=== PATIENT | female | born 1955 | race Caucasian/White ===

== ENCOUNTER 2021-06-01 14:47 | Inpatient (IN) ==
[2021-06-01] MEDS ORDERED: SODIUM CHLORIDE 0.9% 1000ML 1,000 ML IV STA (15:13)
--- NOTE | 2021-06-01 15:21 | Emergency Department Note ---
Impression & Plan Weakness, Orthostatic hypotension, Hypokalemia, Thrombocytopenia ED Provider Note Provider: Michel Alaniz MD DATE OF SERVICE: 06/01/2021 CHIEF COMPLAINT: Weakness, myalgias, diarrhea today HISTORY OF PRESENT ILLNESS: Patient is a 65-year-old female history of endocarditis in 2014 presenting here referred from the PCPs office today after evaluation of approximately 2 weeks of illness. Patient states this began approximate 2 weeks ago with little bit of slight headache and jaw pain. Was a significant amount of associated weakness with this and states she just felt like she can get out of bed for several days. Patient evidently states that she did have a syncopal episode with this and fell to the ground in the bathroom. Was seen in the ER after this event on 21 May. Had a negative outpatient Covid test just before that. States she is unsure if she truly lost consciousness wit h her previous fall but has not had any recurrence of that since then. ER evaluation was only noted a bit of kidney dysfunction which she states she has chronic kidney disease and she was referred to follow-up in the outpatient setting. States she did that and did have significant improvement and thus followed up again today. States has not been eating or drinking as much as normal having significant leg cramps the bilateral calves. Still with some intermittent head and jaw discomfort at times. States she feels a little bit short of breath but denies chest pain beyond some bruising of the right lower lives where she fell. No sick contacts reported. Reports a little bit of loose diarrhea today. Has not been on recent antibiotics in the outpatient setting. Patient unsure if she has had any recent actual tick bites but [place] in area where there are many and states she had a little red spot on her leg/bump a few days ago that is improved. States she does have some bruising on the right lower chest wall from this previous fall with a little bit of tenderness there. Denies significant abdominal pain. Simeon in the office today was noted to be somewhat hypotensive with a systolic in the 90s and was sent here for further evaluation. Patient denies significant sore throat or neck pain at this time. REVIEW OF SYSTEMS: A total of 10 review of systems was obtained and negative except as stated above in the HPI. PAST MEDICAL HISTORY: As noted above MEDICATIONS: On metoprolol at home SOCIAL HISTORY: and lives at home non-smoker PHYSICAL EXAM: GENERAL: alert and oriented in no acute distress on stretcher Head: normocephalic and atraumatic EYES: No injection, discharge or icterus. PERRL NECK: Trachea midline. Supple. ENT: Mucous membranes pink and moist. LUNGS: Airway patent. No retractions. Breath sounds clear with good air entry bilaterally. HEART: Regular tachycardic rate and rhythm. No chest wall tenderness ABDOMEN: Soft and non-tender, without guarding or rebound. SKIN: Acyanotic, warm, dry, without rashes EXTREMITIES: Without swelling, tenderness or deformity NEUROLOGICAL: No focal deficits. No aphasia. No facial droop or slurred speech. EK bpm sinus tachycardia. No PVC or PAC. Left axis is noted with a QTC of 438. No acute ST segment elevation is noted or ST depression. CONTINUOUS CARDIAC MONITORING: was ordered and showed a heart rate of 80s-100s bpm in sinus tachycardia and normal sinus rhythm Patient's laboratory studies and imaging reviewed. Differential includes Infection, dehydration, metabolic abnormality, hyp o/hyperglycemia, electrolyte disturbance, anemia, hypoxia, cardiac sources, intracerebral event, toxicologic, neurologic, as well as other pathologies. IMPRESSION/MEDICAL DECISION MAKING: Patient presents complaining of nonspecific weakness myalgias and fevers over the past approximately 2 weeks. Did have a syncopal episode and previously evaluated here on May 21. Negative outpatient Covid testing repeat testing here was negative. Noted to be hypotensive in the office and thus sent in tod ay. States has been very weak. Orthostatic hypotensive here. States she had a little bit of diarrhea today but denies significant abdominal pain. Given some fluid hydration here. Question of possible occult infectious process. Has not been on antibiotics and lower suspicion for C. difficile. No other sick contacts reported. Patient without significant leukocytosis. No significant anemia but thrombocytopenia is noted. Mildly low sodium at 133 and borderline hypokalemia noted. Given IV fluid hydration here and heart rate did improve with this. No evidence of elevated troponin today or STEMI. Lower suspicion this is cardiac related. Renal function appears actually somewhat improved today but AST and ALT are somewhat elevated. Negative anaplasmosis smear but will send DNA for reference lab to exclude. Negative Lyme testing. Given the patient still significantly weak and question of occult infection. Question some component of poor intake and dehydration as well. Blood cultures were sent. Given a dose of doxycycline for atypical prickly tickborne infections. No evidence of acute pancreatitis based on the lipase and procalcitonin is 0.3. Not having significant leg swelling but again reports some cramping in legs and will give some potassium supplementation. Discussed with the patient and staying further for evaluation which they are in agreement with. The hospitalist was contacted. DIAGNOSIS: Weakness, thrombocytopenia, hypokalemia, orthostatic hypotension DISPOSITION: Hospitalist will evaluate Patient was agreeable with this plan. Past Med/Surg History Medical History (Updated 06/01/21 @ 22:58 by Michel Alaniz M.D.) Breast cancer Hypercholesteremia Rheumatic fever in pediatric patient Surgical History H/O tubal ligation History of heart valve repair Family History Mother Alzheimer disease Father Heart disease Social History Smoking Status: Never smoker Hx Alcohol Use: No Preferred Language: Armenian Feels Safe at Home: Yes Allergies Allergies Allergy/AdvReac Type Severity Reaction Status Date / Time lidocaine Allergy Unknown CAN'T Verified 06/01/21 15:46 REMEMBER metronidazole Allergy Unknown CAN'T Verified 06/01/21 15:46 REMEMBER Sulfa (Sulfonamide Allergy Unknown CAN'T Verified 06/01/21 15:46 Antibiotics) REMEMBER Home Meds Home Medications Medication Instructions Recorded Confirmed acetaminophen [Tylenol Extra 1,000 mg PO Q6H PRN 05/21/21 06/01/21 Strength] cholecalciferol (vitamin D3) 0 mcg PO DAILY 05/21/21 06/01/21 [Vitamin D3] metoprolol succinate 12.5 mg PO DAILY 05/21/21 06/01/21 Results & Data (ED) Vital Signs Vital Signs - 24 hr 06/01/21 14:55 06/01/21 15:08 06/01/21 16:32 Temperature 36.5 C Temperature Source Temporal Artery Scan Pulse Rate - Lying Pulse Rate - Sitting Pulse Rate - Standing Pulse Rate 120 H 105 H 99 H Pulse Rate from SpO2 Sensor 105 H 94 H Respiratory Rate 20 34 H 25 H Respiratory Effort / Characteristics Non-Labored Respiratory Depth Normal Blood Pressure - Lying Blood Pressure - Sitting Blood Pressure- Standing Blood Pressure 110/73 117/82 95/66 L Blood Pressure Mean 85 93 75 Pulse Oximetry 93 93 91 Oxygen Delivery Method Room Air Sepsis Recent Fever Within 48 Hours No Sepsis New/Unexplained Change in Mental Status N/A Sepsis Action Taken by Nursing No Action Required 06/01/21 16:33 06/01/21 16:34 06/01/21 16:36 Temperature Temperature Source Pulse Rate - Lying 96 H Pulse Rate - Sitting 98 H Pulse Rate - Standing 102 H Pulse Rate 112 H 92 H Pulse Rate from SpO2 Sensor 101 H 93 H Respiratory Rate 32 H 38 H Respiratory Effort / Characteristics Respiratory Depth Blood Pressure - Lying 95/66 L Blood Pressure - Sitting 101/64 Blood Pressure- Standing 81/58 L Blood Pressure 101/64 81/58 L Blood Pressure Mean 76 65 Pulse Oximetry 84 L 92 Oxygen Delivery Method Sepsis Recent Fever Within 48 Hours Sepsis New/Unexplained Change in Mental Status Sepsis Action Taken by Nursing 06/01/21 17:26 06/01/21 18:00 Temperature Temperature Source Pulse Rate - Lying Pulse Rate - Sitting Pulse Rate - Standing Pulse Rate 88 86 Pulse Rate from SpO2 Sensor 94 H 87 Respiratory Rate 36 H 28 H Respiratory Effort / Characteristics Respiratory Depth Blood Pressure - Lying Blood Pressure - Sitting Blood Pressure- Standing Blood Pressure 112/79 Blood Pressure Mean 90 Pulse Oximetry 93 93 Oxygen Delivery Method Sepsis Recent Fever Within 48 Hours Sepsis New/Unexplained Change in Mental Status Sepsis Action Taken by Nursing Laboratory Data Result diagrams: 06/01/21 21:44 06/01/21 15:40 Lab Results 06/01/21 06/01/21 06/01/21 Range/Units 15:40 15:40 15:40 WBC 6.66 (4.8-10.8) K/uL RBC 4.88 (4.2-5.4) M/uL Hgb 14.0 (12.0-16.0) g/dL Hct 41.3 (37-47) % MCV 84.6 (80-100) fL MCH 28.7 (25-34) pg MCHC 33.9 (32-36) g/dL RDW Std Deviation 45.4 (36.4-46.3) fL RDW Coeff of Paty 14.5 (11.5-14.5) % Plt Count 91 L (130-400) K/uL MPV 12.2 H (7.4-10.4) fL Immature Gran % (Auto) 0.2 % Neut % (Auto) 67.7 % Lymph % (Auto) 23.3 % [place] % (Auto) 7.7 % Eos % (Auto) 0.0 % Baso % (Auto) 1.1 % Neut # (Auto) 4.52 (1.4-6.5) K/uL Lymph # (Auto) 1.55 (1.2-3.4) K/uL [place] # (Auto) 0.51 (0.11-0.59) K/uL Eos # (Auto) 0.00 (0-0.5) K/uL Baso # (Auto) 0.07 (0-0.2) K/uL Immature Gran # (Auto) 0.01 (0.00-0.02) K/uL D-Dimer (0-500) ug/L FEU Sodium 133 L (136-145) mmol/L Potassium 3.4 L (3.5-5.1) mmol/L Chloride 101 (98-107) mmol/L Carbon Dioxide 22 (21-32) mmol/L Anion Gap 9.0 (3-11) BUN 15 (7-18) mg/dl Creatinine 1.10 (0.6-1.2) mg/dl Est Cr Clr Drug Dosing 50.2 ml/min Est GFR ( Amer) 61.4 ml/min Est GFR (Non-Af Amer) 53.0 ml/min BUN/Creatinine Ratio 13.5 (10-20) Glucose 130 H (70-99) mg/dl Calcium 8.9 (8.5-10.1) mg/dl Magnesium 1.8 (1.8-2.4) mg/dl Total Bilirubin 1.1 H (0.2-1) mg/dl AST 89 H (15-37) U/L ALT 98 H (12-78) U/L Alkaline Phosphatase 135 H (45-117) U/L Troponin I < 0.015 (0-0.045) ng/ml Total Protein 7.3 (6.4-8.2) gm/dl Albumin 3.3 L (3.4-5.0) gm/dl Globulin 4.0 (2.5-4.0) gm/dl Albumin/Globulin Ratio 0.8 L (0.9-2) Lipase 199 (73-393) U/L Procalcitonin 0.31 (0-0.5) ng/ml Urine Color Urine Appearance (Clear) Urine pH (4.5-7.5) Ur Specific [place] (1.000-1.030) Urine Protein (Negative) Urine Glucose (UA) (Negative) Urine Ketones (Negative) Urine Blood (Negative) Urine Nitrite (Negative) Urine Bilirubin (Negative) Urine Urobilinogen (Negative) Ur Leukocyte Esterase (Negative) Urine WBC (Auto) (0-5) /hpf Urine RBC (Auto) (0-4) /hpf U Hyaline Cast (Auto) (0-5) /lpf U Epithel Cells (Auto) (0-5) /lpf Urine Bacteria (Auto) (Negative) Anaplasma Smear See Comment Lyme Disease IgG Ab Negative (Negative) Lyme Disease IgM Ab Negative (Negative) COVID-19 Eval Order SARS-CoV-2 (PCR) (Negative) 06/01/21 06/01/21 06/01/21 Range/Units 15:40 15:52 15:52 WBC (4.8-10.8) K/uL RBC (4.2-5.4) M/uL Hgb (12.0-16.0) g/dL Hct (37-47) % MCV (80-100) fL MCH (25-34) pg MCHC (32-36) g/dL RDW Std Deviation (36.4-46.3) fL RDW Coeff of Paty (11.5-14.5) % Plt Count (130-400) K/uL MPV (7.4-10.4) fL Immature Gran % (Auto) % Neut % (Auto) % Lymph % (Auto) % [place] % (Auto) % Eos % (Auto) % Baso % (Auto) % Neut # (Auto) (1.4-6.5) K/uL Lymph # (Auto) (1.2-3.4) K/uL [place] # (Auto) (0.11-0.59) K/uL Eos # (Auto) (0-0.5) K/uL Baso # (Auto) (0-0.2) K/uL Immature Gran # (Auto) (0.00-0.02) K/uL D-Dimer [id number] H* (0-500) ug/L FEU Sodium (136-145) mmol/L Potassium (3.5-5.1) mmol/L Chloride (98-107) mmol/L Carbon Dioxide (21-32) mmol/L Anion Gap (3-11) BUN (7-18) mg/dl Creatinine (0.6-1.2) mg/dl Est Cr Clr Drug Dosing ml/min Est GFR ( Amer) ml/min Est GFR (Non-Af Amer) ml/min BUN/Creatinine Ratio (10-20) Glucose (70-99) mg/dl Calcium (8.5-10.1) mg/dl Magnesium (1.8-2.4) mg/dl Total Bilirubin (0.2-1) mg/dl AST (15-37) U/L ALT (12-78) U/L Alkaline Phosphatase (45-117) U/L Troponin I (0-0.045) ng/ml Total Protein (6.4-8.2) gm/dl Albumin (3.4-5.0) gm/dl Globulin (2.5-4.0) gm/dl Albumin/Globulin Ratio (0.9-2) Lipase (73-393) U/L Procalcitonin (0-0.5) ng/ml Urine Color Urine Appearance (Clear) Urine pH (4.5-7.5) Ur Specific [place] (1.000-1.030) Urine Protein (Negative) Urine Glucose (UA) (Negative) Urine Ketones (Negative) Urine Blood (Negative) Urine Nitrite (Negative) Urine Bilirubin (Negative) Urine Urobilinogen (Negative) Ur Leukocyte Esterase (Negative) Urine WBC (Auto) (0-5) /hpf Urine RBC (Auto) (0-4) /hpf U Hyaline Cast (Auto) (0-5) /lpf U Epithel Cells (Auto) (0-5) /lpf Urine Bacteria (Auto) (Negative) Anaplasma Smear Lyme Disease IgG Ab (Negative) Lyme Disease IgM Ab (Negative) COVID-19 Eval Order Covid19 at [facility] SARS-CoV-2 (PCR) NEGATIVE (Negative) 06/01/21 Range/Units 18:15 WBC (4.8-10.8) K/uL RBC (4.2-5.4) M/uL Hgb (12.0-16.0) g/dL Hct (37-47) % MCV (80-100) fL MCH (25-34) pg MCHC (32-36) g/dL RDW Std Deviation (36.4-46.3) fL RDW Coeff of Paty (11.5-14.5) % Plt Count (130-400) K/uL MPV (7.4-10.4) fL Immature Gran % (Auto) % Neut % (Auto) % Lymph % (Auto) % [place] % (Auto) % Eos % (Auto) % Baso % (Auto) % Neut # (Auto) (1.4-6.5) K/uL Lymph # (Auto) (1.2-3.4) K/uL [place] # (Auto) (0.11-0.59) K/uL Eos # (Auto) (0-0.5) K/uL Baso # (Auto) (0-0.2) K/uL Immature Gran # (Auto) (0.00-0.02) K/uL D-Dimer (0-500) ug/L FEU Sodium (136-145) mmol/L Potassium (3.5-5.1) mmol/L Chloride (98-107) mmol/L Carbon Dioxide (21-32) mmol/L Anion Gap (3-11) BUN (7-18) mg/dl Creatinine (0.6-1.2) mg/dl Est Cr Clr Drug Dosing ml/min Est GFR ( Amer) ml/min Est GFR (Non-Af Amer) ml/min BUN/Creatinine Ratio (10-20) Glucose (70-99) mg/dl Calcium (8.5-10.1) mg/dl Magnesium (1.8-2.4) mg/dl Total Bilirubin (0.2-1) mg/dl AST (15-37) U/L ALT (12-78) U/L Alkaline Phosphatase (45-117) U/L Troponin I (0-0.045) ng/ml Total Protein (6.4-8.2) gm/dl Albumin (3.4-5.0) gm/dl Globulin (2.5-4.0) gm/dl Albumin/Globulin Ratio (0.9-2) Lipase (73-393) U/L Procalcitonin (0-0.5) ng/ml Urine Color Dark Yellow Urine Appearance Clear (Clear) Urine pH 5.0 (4.5-7.5) Ur Specific [place] 1.017 (1.000-1.030) Urine Protein 1+ H (Negative) Urine Glucose (UA) Negative (Negative) Urine Ketones 1+ H (Negative) Urine Blood Negative (Negative) Urine Nitrite Negative (Negative) Urine Bilirubin Negative (Negative) Urine Urobilinogen Negative (Negative) Ur Leukocyte Esterase Trace H (Negative) Urine WBC (Auto) 1-5 (0-5) /hpf Urine RBC (Auto) 5-10 H (0-4) /hpf U Hyaline Cast (Auto) 5-10 H (0-5) /lpf U Epithel Cells (Auto) 20-30 H (0-5) /lpf Urine Bacteria (Auto) Negative (Negative) Anaplasma Smear Lyme Disease IgG Ab (Negative) Lyme Disease IgM Ab (Negative) COVID-19 Eval Order SARS-CoV-2 (PCR) (Negative) Administered Medications Potassium Chloride/Sodium Chloride (Normal Saline W/20 Meq Kcl) 20 meq in 1,000 mls @ 125 mls/hr IV .Q8H ROSELINE Stop: 07/01/21 21:29 Last Admin: 06/01/21 22:26 Dose: 125 mls/hr Documented by: [id number] Discontinued Medications Doxycycline Hyclate (Doxycycline Hyclate 100 Mg Cap) 100 mg PO NOW STA Stop: 06/01/21 17:07 Last Admin: 06/01/21 19:13 Dose: 100 mg Documented by: [id number] Heparin Sodium (Porcine) (Heparin Sod 5,000 Unit/0.5 Ml Vial) 5,000 units SQ Q12 ROSELINE Stop: 07/01/21 21:15 Last Admin: 06/01/21 22:27 Dose: Not Given Documented by: [id number] Sodium Chloride (Nss 1000ml) 1,000 mls @ 125 mls/hr IV .Q8H STA Stop: 06/01/21 23:12 Last Infusion: 06/01/21 20:40 Dose: 125 mls/hr Documented by: [id number] Infusion: 06/01/21 18:10 Dose: 125 mls/hr Documented by: [id number] Infusion: 06/01/21 17:25 Dose: 0 mls/hr Documented by: [id number] Admin: 06/01/21 16:03 Dose: 125 mls/hr Documented by: [id number] Sodium Chloride (Nss 1000ml) 1,000 mls @ 999 mls/hr IV .Q1H1M ONE Stop: 06/01/21 18:06 Last Infusion: 06/01/21 18:25 Dose: 0 mls/hr Documented by: [id number] Admin: 06/01/21 17:25 Dose: 999 mls/hr Documented by: [id number] Potassium Chloride (K Nathaniel / Wtr) 10 meq in 100 mls @ 100 mls/hr IV ONE ONE Stop: 06/01/21 18:28 Last Infusion: 06/01/21 19:26 Dose: 0 mls/hr Documented by: [id number] Admin: 06/01/21 17:44 Dose: 100 mls/hr Documented by: [id number] Ioversol (Optiray 320 125ml) 120 ml IV ONCE ONE Stop: 06/01/21 20:26 Last Admin: 06/01/21 20:26 Dose: 120 ml Documented by: [id number] Imaging Data Radiologist's Impression: Chest X-Ray 06/01/21 15:14 SINGLE VIEW CHEST CLINICAL HISTORY: Fever. FINDINGS: An AP, portable, upright chest radiograph is compared to study dated 05/21/2021. The heart is enlarged noting atherosclerotic calcification of the thoracic aorta. The pulmonary vasculature is noncongested. There is evidence of previous cardiac valve surgery. Chronic interstitial thickening is similar to previous. There are left basilar opacities. Atelectasis is noted at the right lung base. No large pleural effusion is identified. No pneumothorax is seen. The skeletal structures are osteopenic. The bony thorax is grossly intact. Calcific tendinopathy is noted in both shoulders. Surgical clips project over the right lower chest. IMPRESSION: 1. Cardiomegaly without radiographic evidence of congestive failure. 2. Left basilar opacities likely represent atelectasis. Clinical correlation will be required. ACT 112: Negative or not required by law. Electronically signed by: Octavio Escobedo M.D. 06/01/2021 3:53 PM Discharge Plan Visit Data Chief Complaint: Dehydration Stated Complaint: DEHYDRATION, LEG CRAMPS, LOW BP ED Provider: Michel Alaniz Discharge Problem: Weakness, Orthostatic hypotension, Hypokalemia, Thrombocytopenia Patient Disposition: Admitted As Inpatient Discharge Instructions Interventions: ED Discharge Assessment Last Done: 06/01/21 20:23
--- NOTE | 2021-06-01 15:54 | XRay Report ---
SINGLE VIEW CHEST CLINICAL HISTORY: Fever. FINDINGS: An AP, portable, upright chest radiograph is compared to study dated 05/21/2021. The heart i s enlarged noting atherosclerotic calcification of the thoracic aorta. The pulmonary vasculature is n oncongested. There is evidence of previous cardiac valve surgery. Chronic interstitial thickening is similar to previous. There are left basilar opacities. Atelectasis is noted at the right lung base. N o large pleural effusion is identified. No pneumothorax is seen. The skeletal structures are osteopen ic. The bony thorax is grossly intact. Calcific tendinopathy is noted in both shoulders. Surgical cli ps project over the right lower chest. IMPRESSION: 1. Cardiomegaly without radiographic evidence of congestive failure. 2. Left basilar opacities likely represent atelectasis. Clinical correlation will be required. ACT 112: Negative or not required by law. Electronically signed by: Octavio Escobedo M.D. 06/01/2021 3:53 PM
[2021-06-01 16:12] LABS: Hematocrit (blood only) 41.3 % (37-47); Mean Corpuscular Hemoglobin 28.7 pg (25-34); Mean Corpuscular Hgb Conc 33.9 g/dL (32-36); Mean Corpuscular Volume 84.6 fL (80-100); Mean Platelet Volume 12.2 fL (7.4-10.4); Platelet Count 91 K/uL (130-400); RDW Coefficient of Variation 14.5 % (11.5-14.5); RDW Standard Deviation 45.4 fL (36.4-46.3); Red Blood Count 4.88 M/uL (4.2-5.4); White Blood Count 6.66 K/uL (4.8-10.8)
[2021-06-01 16:14] LABS: Alanine Aminotransferase 98 U/L (12-78); Albumin Level 3.3 gm/dl (3.4-5.0); Aspartate Aminotransferase 89 U/L (15-37); BUN Creatinine Ratio 13.5 (10-20); Blood Urea Nitrogen 15 mg/dl (7-18); Calcium 8.9 mg/dl (8.5-10.1); Carbon Dioxide 22 mmol/L (21-32); Chloride 101 mmol/L (98-107); Creatinine Clr Calc Pharmacy 50.2 ml/min; Est GFR (African American) 61.4 ml/min; Glucose 130 mg/dl (70-99); Lipase 199 U/L (73-393); Potassium 3.4 mmol/L (3.5-5.1); Sodium 133 mmol/L (136-145)
[2021-06-01 16:19] LABS: Albumin Globulin Ratio 0.8 (0.9-2); Alkaline Phosphatase 135 U/L (45-117); Bilirubin,Total 1.1 mg/dl (0.2-1); Total Protein 7.3 gm/dl (6.4-8.2); Troponin I < 0.015 ng/ml (0-0.045)
[2021-06-01 16:41] LABS: Procalcitonin 0.31 ng/ml (0-0.5)
[2021-06-01 16:46] LABS: Basophils # (auto) 0.07 K/uL (0-0.2); Basophils % (auto) 1.1 %; Immature Granulocytes # (auto) 0.01 K/uL (0.00-0.02); Immature Granulocytes % (auto) 0.2 %; Lymphocytes # (auto) 1.55 K/uL (1.2-3.4); Lymphocytes % (auto) 23.3 %; Monocytes # (auto) 0.51 K/uL (0.11-0.59); Monocytes % (auto) 7.7 %; Neutrophils # (auto) 4.52 K/uL (1.4-6.5); Neutrophils % (auto) 67.7 %
[2021-06-01 16:47] LABS: Lyme Ab IgG w/WB Rflx Negative (Negative); Lyme Ab IgM w/WB Rflx Negative (Negative)
[2021-06-01] MEDS ORDERED: DOXYCYCLINE HYCLATE 100 MG CAP PO STA (17:06)
[2021-06-01] MEDS ORDERED: SODIUM CHLORIDE 0.9% 1000ML 1,000 ML IV ONE (17:06)
[2021-06-01] MEDS ORDERED: POTASSIUM CHLORIDE / WTR 10 MEQ/100 ML PLCT IV ONE (17:29)
[2021-06-01 17:40] LABS: Magnesium 1.8 mg/dl (1.8-2.4)
--- NOTE | 2021-06-01 18:06 | History & Physical Report ---
Date of Service June 01, 2021 Assessment & Plan (1) Weakness: Dehydration Orthostatic hypotension Diarrhea Positive orthostatics while in ED. Continue IV fluids Check stool studies if recurrence of diarrhea Monitor blood pressure Hyponatremia Hypokalemia Secondary to GI losses, dehydration Replace electrolytes as needed Possible tickborne illness Denies known tick bite Lyme screen negative Blood cultures obtained Anaplasma PCR pending Start on doxycycline empirically Transaminitis ? Secondary to tickborne illness History of cholelithiasis Avoid hepatotoxic agents Monitor LFTs Check gallbladder ultrasound Sinus tachycardia History of paroxysmal SVT H/O mitral valve repair Check resting echo Check D-dimer Will consider further work-up if D-dimer is elevated Continue metoprolol with holding parameters CKD stage III Creatinine at baseline Avoid nephrotoxic agents as able Monitor renal function History of breast cancer S/p surgery Atelectasis Continue incentive spirometry DVT prophylaxis Heparin SQ CODE STATUS Full code Disposition Expected discharge home when medically stable. History of Present Illness Chief Complaint: Generalized weakness, diarrhea, Dyspnea Primary Care Provider: Shari Sparks DO Patient is a 65-year-old female with history of paroxysmal SVT, stage III kidney disease, mitral valve repair, history of infective endocarditis, breast carcinoma S/P surgery and other medical problems presents with history of ongoing generalized weakness, intermittent diarrhea, leg cramps, poor appetite, fever since 2 weeks duration. Patient was evaluated by PCP today and was sent to ED for further evaluation. Patient states having a headache 1 week ago lasting for about 5 days which currently resolved. She states having diarrhea intermittently for about 3 weeks duration but denies any history of abdominal pain. She admits to have an episode of vomiting 4 days ago. She also states having leg cramps bilaterally since 2 days duration. She has poor appetite for about 2 weeks and also noticed fever associated with diaphoresis since 2 days duration. She reports having a syncopal episode about 2 weeks ago and she was noted to have low blood pressure in the 60s when checked at home at that time. She also states having dyspnea at rest and on exertion since last few days. She noted to have small bump on her left leg 3 weeks ago but denies any tick bite. Denies any history of chest pain, palpitations, dizziness, pedal edema, cough, change in vision, bowel/bladder incontinence, blood in stools, dysuria. Allergies Allergy/AdvReac Type Severity Reaction Status Date / Time lidocaine Allergy Unknown CAN'T Verified 06/01/21 15:46 REMEMBER metronidazole Allergy Unknown CAN'T Verified 06/01/21 15:46 REMEMBER Sulfa (Sulfonamide Allergy Unknown CAN'T Verified 06/01/21 15:46 Antibiotics) REMEMBER Home Medications Medication Instructions Recorded Confirmed Type acetaminophen [Tylenol Extra 1,000 mg PO Q6H PRN 05/21/21 06/01/21 History Strength] cholecalciferol (vitamin D3) 0 mcg PO DAILY 05/21/21 06/01/21 History [Vitamin D3] metoprolol succinate 12.5 mg PO DAILY 05/21/21 06/01/21 History Past Med/Surg History Medical History Breast cancer Hypercholesteremia Rheumatic fever in pediatric patient Surgical History H/O tubal ligation History of heart valve repair Family History Mother Alzheimer disease Father Heart disease Social History Smoking Status: Never smoker Hx Alcohol Use: No Preferred Language: Tongan Feels Safe at Home: Yes Review of Systems Review of Systems: All systems reviewed & are unremarkable except as noted in HPI & below Physical Exam Physical Exam: Physical Exam: Vitals signs as noted above General Appearance:Moderately built and nourished, no apparent distress Head: normocephalic, Atraumatic Eyes: normal inspection, EOMI Neck: supple, Trachea midline Respiratory/Chest: Normal breath sounds, Left basal crackles Cardiovascular: S1, S2, No murmur Abdomen/GI:Soft, Non tender, Bowel sounds present Extremities/Musculoskeletal:normal inspection, no edema Neurologic/Psych:AAOX3, grossly no focal neurological deficits Skin: normal color, warm Results & Data Results & Data ([facility]) Vital Signs (Past 12 Hours) Vital Signs Temp Pulse Resp BP Pulse Ox 06/01/21 17:26 88 36 H 112/79 93 06/01/21 16:34 92 H 38 H 81/58 L 92 06/01/21 16:33 112 H 32 H 101/64 84 L 06/01/21 16:32 99 H 25 H 95/66 L 91 06/01/21 15:08 105 H 34 H 117/82 93 06/01/21 14:55 36.5 C 120 H 20 110/73 93 Laboratory Results Short CBC 06/01/21 Range/Units 15:40 WBC 6.66 (4.8-10.8) K/uL Hgb 14.0 (12.0-16.0) g/dL Hct 41.3 (37-47) % Plt Count 91 L (130-400) K/uL BMP 06/01/21 15:40 Sodium 133 L Potassium 3.4 L Chloride 101 Carbon Dioxide 22 BUN 15 Creatinine 1.10 Glucose 130 H Calcium 8.9 Cardiac Enzymes 06/01/21 Range/Units 15:40 Troponin I < 0.015 (0-0.045) ng/ml Liver Function 06/01/21 Range/Units 15:40 Total Bilirubin 1.1 H (0.2-1) mg/dl AST 89 H (15-37) U/L ALT 98 H (12-78) U/L Alkaline Phosphatase 135 H (45-117) U/L Albumin 3.3 L (3.4-5.0) gm/dl Urine 06/01/21 Range/Units 18:15 Urine Color Dark Yellow Urine Appearance Clear (Clear) Urine pH 5.0 (4.5-7.5) Ur Specific [place] 1.017 (1.000-1.030) Urine Protein 1+ H (Negative) Urine Glucose (UA) Negative (Negative) Diagnostic Findings CXR: 1. Cardiomegaly without radiographic evidence of congestive failure. 2. Left basilar opacities likely represent atelectasis. Clinical correlation will be required. ECG Additional Comments: EKG: Sinus tachycardia, left axis deviation, QTC 438.
[2021-06-01 18:28] LABS: Appearance Urine Clear (Clear); Bacteria Urine Automated Negative (Negative); Bilirubin Urine Negative (Negative); Blood Urine Negative (Negative); Color Urine Dark Yellow; Epithelial Cell Urine Auto 20-30 /lpf (0-5); Glucose Urine UA Negative (Negative); Ketones Urine 1+ (Negative); Leukocyte Esterase Urine Trace (Negative); Nitrite Urine Negative (Negative); Protein Urine 1+ (Negative); Specific Gravity Urine 1.017 (1.000-1.030); Urobilinogen Urine Negative (Negative)
[2021-06-01 19:39] LABS: D Dimer 11380 ug/L FEU (0-500)
[2021-06-01] MEDS ORDERED: OPTIRAY 320 125ml IV ONE (20:25)
--- NOTE | 2021-06-01 20:54 | Ultrasound Report ---
ULTRASOUND BILATERAL LOWER EXTREMITY VENOUS CLINICAL HISTORY: Elevated d-dimer. COMPARISON STUDY: No priors. TECHNIQUE: Real-time, grayscale, and color Doppler sonography of the deep veins of the right and left lower extremity was performed from the inguinal crease to the calf. Compression and augmentation wer e utilized. FINDINGS: There is no sonographic evidence of deep venous thrombosis identified in the right or left lower extremity. The common femoral, superficial femoral, and popliteal veins are patent and normally compressible bilaterally. The greater saphenous vein and the profunda femoris vein at the junction w ith the common femoral vein are clear in both legs. The visualized calf veins are patent bilaterally. IMPRESSION: There is no sonographic evidence of deep venous thrombosis identified in the right or lef t lower extremity. ACT 112: Negative or not required by law. Electronically signed by: Octavio Escobedo M.D. 06/01/2021 8:53 PM
--- NOTE | 2021-06-01 21:02 | CT Scan Report ---
CT ANGIOGRAM OF THE CHEST CLINICAL HISTORY: Cough. Atypical chest pain. COMPARISON STUDY: Chest x-ray dated 06/01/2021. TECHNIQUE: Following the IV administration of 120 cc of Optiray 320, CT angiogram of the chest was pe rformed from the upper abdomen to the thoracic inlet utilizing the pulmonary embolus protocol. Images are reviewed in the axial, sagittal, and coronal planes. 3-D MIPS images are created and assessed. I V contrast was administered without complication. A dose lowering technique was utilized adhering to the principles of ALARA. CT DOSE: 258.40 mGy.cm FINDINGS: Thyroid: Mildly atrophic. Thoracic aorta: There is atherosclerotic calcification of the thoracic aorta. There is mild ectasia o f the ascending thoracic aorta which measures up to 3.6 cm diameter. The remainder of the thoracic ao rta is normal in caliber, and the arch demonstrates standard 3-vessel anatomy. No dissection is seen. Pulmonary vasculature: The pulmonary trunk is normal in caliber. There is pulmonary embolus within th e right upper lobe pulmonary artery. This extends into segmental and subsegmental branches. Distal se gmental and subsegmental pulmonary emboli are seen within branches of the right lower lobe pulmonary artery, as well as within branches of the left lower lobe pulmonary artery. Heart: The heart is mildly enlarged and without pericardial effusion. There is evidence of previous m itral valve surgery. Lungs and pleural spaces: There are trace pleural effusions with dependent consolidation. Mild diffus e peribronchial thickening is noted. 1The trachea and central airways are clear. Mediastinum: There is no mediastinal lymphadenopathy. Sandy: Clear. Axillae: There is no axillary lymphadenopathy. Upper abdomen: Partially visualized upper abdominal viscera is within normal limits. Skeletal structures: The skeletal structures are osteopenic. Degenerative change and mild hyperkyphos is is noted in the thoracic spine. No lytic or blastic bony lesions are seen. IMPRESSION: 1. Bilateral pulmonary emboli as above. 2. Cardiomegaly and trace pleural effusions. 3. Dependent consolidation likely represents atelectasis. Clinical correlation will be required. 4. Additional findings as above. ACT 112: Negative or not required by law. Electronically signed by: Octavio Escobedo M.D. 06/01/2021 9:01 PM
[2021-06-01] MEDS ORDERED: HEPARIN SOD 5,000 UNIT/0.5 ML VIAL SQ SCH (21:16)
[2021-06-01] MEDS ORDERED: POLYETHYLENE (MIRALAX) 17 GM PACK PO PRN (21:16)
[2021-06-01] MEDS ORDERED: ONDANSETRON INJ 2 MG/ML 2 ML VIAL IV PRN (21:16)
[2021-06-01] MEDS ORDERED: LEVALBUTEROL HCL 0.63 MG/3 ML NEB NEB PRN (21:16)
[2021-06-01] MEDS ORDERED: Heparin IV Adult Wt-Based Low-Dose *NO* Bolus Protocol ONE (21:22)
[2021-06-01] MEDS ORDERED: HEPARIN SODIUM/DEXTROSE 25,000 UNITS/500 ML BAG IV SCH (21:30)
[2021-06-01 21:41] LABS: Partial Thromboplastin Ratio 0.9; Partial Thromboplastin Time 24.8 Seconds (21.0-31.0)
--- NOTE | 2021-06-01 22:11 | Communication Note ---
Date of Service: June 01, 2021 Made aware of abnormal CT chest findings. Bilateral PE as per report. Patient complaining of headache. History of cerebral amyloid angiopathy/multiple microhemorrhages on outpatient MRI February 2021 CT head There is no evidence of hemorrhage, mass effect, acute territorial ischemia. MRI initial read No acute ischemia, midline shift, or mass-effect. Normal for age volume of brain parenchyma. No evidence of intracranial hemorrhage. No significant chronic microvascular ischemic changes. Small extra-axial lesion at the pituitary gland. The lesion demonstrates T1 isointense FLAIR hyperintense signal and measures 0.6 x 0.5 x 0.6 cm, AP by transverse by CC. The lesion appears separate from the pituitary gland and is located superiorly to the adenoh ypophysis and anteriorly to the pituitary infundibulum. Differential considerations may include Rathke's cleft cyst or meningioma. Other lesion is not excluded on the provided images. There is partial effacement of suprasellar cistern with mild abutment of undersurface of the optic chiasm. There is normal signal in the visualized prechiasmatic optic nerves, optic chiasm, and optic radiations. Braxton mmend MRI of the pituitary gland without and with contrast. Case discussed with patient's neurologist (Dr. Ren) over the phone. He agrees with starting anticoagulation albeit carefully. Initiate low-dose IV heparin for now. Will relay to AM provider.
[2021-06-01 22:15] LABS: Hematocrit (blood only) 38.5 % (37-47); Hemoglobin 12.9 g/dL (12.0-16.0); Mean Corpuscular Volume 83.7 fL (80-100); RDW Coefficient of Variation 14.7 % (11.5-14.5); RDW Standard Deviation 45.2 fL (36.4-46.3); White Blood Count 6.03 K/uL (4.8-10.8)
[2021-06-01] MEDS: NSS + 20MEQ KCL 20 MEQ/1,000 ML BAG IV SCH (22:26)
[2021-06-01 22:31] LABS: Partial Thromboplastin Ratio 0.9; Partial Thromboplastin Time 24.2 Seconds (21.0-31.0); Prothrombin Time 10.6 Seconds (9.0-12.0)
[2021-06-01 22:34] LABS: Mean Corpuscular Hgb Conc 33.5 g/dL (32-36); Mean Platelet Volume 11.8 fL (7.4-10.4); Platelet Count 77 K/uL (130-400)
[2021-06-01 22:35] LABS: Basophils # (auto) 0.09 K/uL (0-0.2); Basophils % (auto) 1.5 %; Lymphocytes # (auto) 2.72 K/uL (1.2-3.4); Lymphocytes % (auto) 45.1 %; Monocytes # (auto) 0.33 K/uL (0.11-0.59); Monocytes % (auto) 5.5 %; Neutrophils # (auto) 2.89 K/uL (1.4-6.5); Neutrophils % (auto) 47.9 %
--- NOTE | 2021-06-01 22:59 | CT Scan Report ---
CT SCAN OF THE BRAIN WITHOUT IV CONTRAST CLINICAL HISTORY: Headache. COMPARISON STUDY: No priors. TECHNIQUE: Unenhanced axial CT scan of the brain is performed from the vertex to the skull base. A do se lowering technique was utilized adhering to the principles of ALARA. The examination is degraded b y residual IV contrast from an earlier CT scan. CT DOSE: 537.48 mGy.cm FINDINGS: Brain parenchyma: The brain parenchyma is normal in appearance. There is no hemorrhage, mass effect, or evidence of acute territorial ischemia by CT criteria. Eddy-white matter differentiation is preser amparo. No extra-axial fluid collection is seen. Ventricles, sulci, cisterns: Normal in configuration. Intracranial vasculature: There is atherosclerotic calcification of the cavernous carotid arteries. Calvarium: Unremarkable. Sinuses and mastoids: The visualized paranasal sinuses are clear. The mastoid air cells are well pneu matized. Orbits: The bony orbits are grossly intact. IMPRESSION: There is no evidence of hemorrhage, mass effect, acute territorial ischemia. ACT 112: Negative or not required by law. Electronically signed by: Octavio Escobedo M.D. 06/01/2021 10:58 PM
[2021-06-02] MEDS ORDERED: Heparin IV Adult Wt-Based Low-Dose *NO* Bolus Protocol ONE (03:13)
[2021-06-02] MEDS: HEPARIN SODIUM/DEXTROSE 25,000 UNITS/500 ML BAG IV SCH (04:36)
[2021-06-02 05:50] LABS: Hematocrit (blood only) 38.4 % (37-47); Hemoglobin 12.7 g/dL (12.0-16.0); Mean Corpuscular Hemoglobin 27.7 pg (25-34); Mean Corpuscular Hgb Conc 33.1 g/dL (32-36); Mean Corpuscular Volume 83.8 fL (80-100); RDW Coefficient of Variation 14.8 % (11.5-14.5); RDW Standard Deviation 45.7 fL (36.4-46.3); Red Blood Count 4.58 M/uL (4.2-5.4); White Blood Count 6.63 K/uL (4.8-10.8)
[2021-06-02 05:51] LABS: Mean Platelet Volume 11.9 fL (7.4-10.4); Platelet Count 80 K/uL (130-400)
[2021-06-02] MEDS: NSS + 20MEQ KCL 20 MEQ/1,000 ML BAG IV SCH ×3 (06:06→22:22)
[2021-06-02] MEDS: DOXYCYCLINE HYCLATE 100 MG in DEXTROSE 5% 100 ML IV SCH ×2 (06:06→17:40)
[2021-06-02 06:22] LABS: Albumin Level 2.8 gm/dl (3.4-5.0); BUN Creatinine Ratio 14.2 (10-20); Calcium 8.5 mg/dl (8.5-10.1); Creatinine Clr Calc Pharmacy 60.1 ml/min; Est GFR (African American) 76.3 ml/min; Est GFR (Non-African American) 65.8 ml/min; Magnesium 1.9 mg/dl (1.8-2.4)
[2021-06-02 06:28] LABS: Albumin Globulin Ratio 0.8 (0.9-2); Bilirubin,Total 0.7 mg/dl (0.2-1); Globulin 3.6 gm/dl (2.5-4.0); Total Protein 6.4 gm/dl (6.4-8.2)
--- NOTE | 2021-06-02 06:47 | Electrocardiogram Report ---
Test Reason : Blood Pressure : / mmHG Vent. Rate : 105 BPM Atrial Rate : 105 BPM P-R Int : 200 ms QRS Dur : 084 ms QT Int : 332 ms P-R-T Axes : 061 -36 048 degrees QTc Int : 438 ms Sinus tachycardia with frequent Premature atrial complexes Left axis deviation Abnormal ECG When compared with ECG of 21-MAY-2021 12:21, No significant change Confirmed by Eleazar Koehler ([id number]) on 06/02/2021 6:47:02 AM Referred By: REFERRED SELF Confirmed By:Eleazar Koehler
[2021-06-02 07:13] LABS: ALC (manual) 4.13 K/uL (1.2-3.4); ANC (manual) 2.27 K/uL (1.4-6.5); Anaplasmosis Smear(Rpt to DOH) Pos for Anaplasma; Eosinophils # (manual) 0.06 K/uL (0-0.5); Eosinophils % (manual) 0.9 %; Large Granular Lymph % (manual) 37.7 %; Lymphocytes # (manual) 1.63 K/uL (1.2-3.4); Lymphocytes % (manual) 24.6 %; Monocytes # (manual) 0.17 K/uL (0.11-0.59); Monocytes % (manual) 2.6 %; Neutrophils # (manual) 2.27 K/uL (1.4-6.5); Neutrophils % (manual) 34.2 %
--- NOTE | 2021-06-02 07:32 | Ultrasound Report ---
ABDOMINAL ULTRASOUND, RIGHT UPPER QUADRANT HISTORY: Transaminitis H/O Cholelithiasis. COMPARISON: Abdomen and pelvis CT 05/21/2021. FINDINGS: Pancreas: The pancreatic head and tail are obscured by overlying bowel gas. The remaining portions of the pancreas are within normal limits. Liver: Unremarkable. Gallbladder: No gallbladder wall thickening. There are few small stones identified. CBD: 4 mm. Right kidney: No hydronephrosis. IMPRESSION: 1. Cholelithiasis. No gallbladder wall thickening. 2. Normal liver. ACT 112: Negative or not required by law. Electronically signed by: Rosendo Dean M.D. 06/02/2021 7:30 AM
--- NOTE | 2021-06-02 07:54 | Magnetic Resonance Report ---
Brain MRI WITHOUT CONTRAST HISTORY: Headache, hx cerebral amyloid angiopathy/microhemorrhage TECHNIQUE: Multiplanar multisequence MRI of the brain was performed without the use of contrast. COMPARISON STUDY: Head CT 06/01/2021. FINDINGS: No areas of restricted diffusion to suggest acute infarction. A few scattered punctate foci susceptibility artifact within the brain best seen on the gradient echo sequences. This is consisten t with the patient's known history of cerebral amyloid angiopathy. There is no hematoma or midline sh ift. The paranasal sinuses and mastoid air cells are clear. The major vascular flow voids at the skul l base are well-maintained. The orbits are unremarkable. The ventricles and sulci are within normal l imits. There is a 5 mm T2 hyperintense, T1 hypointense suprasellar nodule abutting the superior aspec t of the pituitary gland and anterior to the pituitary stalk. This appears to abut the undersurface o f the optic chiasm but does not deform the optic chiasm. IMPRESSION: 1. No acute infarct or acute intracranial hemorrhage. 2. A few scattered punctate foci of susceptibility artifact seen within the brain consistent with the patient's known history of cerebral amyloid angiopathy. 3. A 5 mm suprasellar nodule abutting the superior aspect of the pituitary gland. This could be separ ate from the pituitary gland and therefore may represent a small meningioma, Rathke's cleft cyst, or craniopharyngioma. An exophytic pituitary microadenoma could also have a similar appearance. Follow-u p neurosurgical consultation recommended. ACT 112: Positive. There are findings on this exam that require communication between the performing entity and the patient following Patient Test Result Information Act ([place] Act 112) guidelines. Electronically signed by: Rosendo Dean M.D. 06/02/2021 7:53 AM
[2021-06-02] MEDS: METOPROLOL SUCC 25MG EXT REL TAB PO SCH ×2 (08:17→08:22)
[2021-06-02 10:58] LABS: Partial Thromboplastin Ratio 1.2; Partial Thromboplastin Time 32.5 Seconds (21.0-31.0)
[2021-06-02] MEDS ORDERED: HEPARIN SOD (PORCINE) 1000 UNIT/ML IV STA (11:13)
--- NOTE | 2021-06-02 16:06 | Hospitalist Progress Note ---
Date of Service June 02, 2021 Assessment & Plan (1) Weakness: Dehydration Orthostatic hypotension Diarrhea Positive orthostatics while in ED. Continue IV fluids Monitor blood pressure Stool culture pending Stool for C. difficile canceled due to semiformed stool Acute Pulmonary Embolism: POA Elevated D dimer -CTA: Bilateral pulmonary emboli. Cardiomegaly and trace pleural effusions. Dependent consolidation likely represents atelectasis. Clinical correlation will be required. -Venous Doppler:There is no sonographic evidence of deep venous thrombosis identified in the right or left lower extremity. -ECHO:pending -Continue IV heparin for now -Prefers to be transitioned to Eliquis H/O Cerebral amyloid angiopathy Suprasellar nodule -MRI Brain:No acute infarct or acute intracranial hemorrhage. A few scattered punctate foci of susceptibility artifact seen within the brain consistent with the patient's known history of cerebral amyloid angiopathy. A 5 mm suprasellar nodule abutting the superior aspect of the pituitary gland. This could be separate from the pituitary gland and therefore may represent a small meningioma, Rathke's cleft cyst, or craniopharyngioma. An exophytic pituitary microadenoma could also have a similar appearance. Follow-up neurosurgical consultation recommended. -Follows with Neurology -Neurology agrees with anticoagulation for PE -Needs follow up with Neurosurgery as outpatient Hyponatremia Hypokalemia Secondary to GI losses, dehydration Replace electrolytes as needed Anaplasmosis Denies known tick bite Lyme screen negative Blood cultures obtained Peripheral smear positive for anaplasmosis Continue doxycycline Day #2 Transaminitis Likely secondary to tickborne illness History of cholelithiasis Gall Bladder USD:Cholelithiasis. No gallbladder wall thickening. Normal liver. Avoid hepatotoxic agents Monitor LFTs Sinus tachycardia History of paroxysmal SVT H/O mitral valve repair ECHO pending Continue metoprolol with holding parameters CKD stage III Creatinine at baseline Avoid nephrotoxic agents as able Monitor renal function History of breast cancer S/p surgery Atelectasis Continue incentive spirometry DVT Px on IV Heparin CODE STATUS Full code Disposition Expected discharge home when medically stable. Admission and Anticipated Discharge Date Admission Date: June 01, 2021 Subjective Patient is seen and examined at bedside States feeling a lot better today Reports minimal back pain Denies chest pain, dyspnea Diarrhea improving Currently on IV heparin Denies any bleeding issues Headache resolved Review of Systems Review of Systems: All systems reviewed & are unremarkable except as noted in HPI & below Physical Exam Physical Exam: Physical Exam: Vitals signs as noted above General Appearance:Moderately built and nourished, no apparent distress Head: normocephalic, Atraumatic Eyes: normal inspection, EOMI Neck: supple, Trachea midline Respiratory/Chest: Normal breath sounds, CTA Cardiovascular: S1, S2, No murmur Abdomen/GI:Soft, Non tender, Bowel sounds present Extremities/Musculoskeletal:normal inspection, no edema Neurologic/Psych:AAOX3, grossly no focal neurological deficits Skin: normal color, warm Results & Data Results & Data ([facility]) Vital Signs (Past 12 Hours) Vital Signs Temp Pulse Pulse Resp BP BP Pulse Ox 06/02/21 15:28 36.6 C 69 18 130/66 98 06/02/21 14:43 76 06/02/21 12:02 35.6 C L 72 20 98/64 L 93 06/02/21 07:45 36.7 C 68 20 114/73 92 06/02/21 07:00 69 06/02/21 06:56 36.7 C 73 20 122/85 94 Laboratory Results Short CBC 06/01/21 06/01/21 06/02/21 Range/Units 15:40 21:44 05:12 WBC 6.66 6.03 6.63 (4.8-10.8) K/uL Hgb 14.0 12.9 12.7 (12.0-16.0) g/dL Hct 41.3 38.5 38.4 (37-47) % Plt Count 91 L 77 L 80 L (130-400) K/uL BMP 06/01/21 06/02/21 15:40 05:12 Sodium 133 L 137 Potassium 3.4 L 4.0 D Chloride 101 108 H Carbon Dioxide 22 25 BUN 15 13 Creatinine 1.10 0.92 Glucose 130 H 102 H Calcium 8.9 8.5 Cardiac Enzymes 06/01/21 Range/Units 15:40 Troponin I < 0.015 (0-0.045) ng/ml Liver Function 06/01/21 06/02/21 Range/Units 15:40 05:12 Total Bilirubin 1.1 H 0.7 (0.2-1) mg/dl AST 89 H 57 H (15-37) U/L ALT 98 H 74 (12-78) U/L Alkaline Phosphatase 135 H 105 (45-117) U/L Albumin 3.3 L 2.8 L (3.4-5.0) gm/dl Urine 06/01/21 Range/Units 18:15 Urine Color Dark Yellow Urine Appearance Clear (Clear) Urine pH 5.0 (4.5-7.5) Ur Specific [place] 1.017 (1.000-1.030) Urine Protein 1+ H (Negative) Urine Glucose (UA) Negative (Negative)
[2021-06-02 17:49] LABS: Partial Thromboplastin Ratio 1.9
[2021-06-02 18:00] LABS: Partial Thromboplastin Time 50.3 Seconds (21.0-31.0)
[2021-06-03 05:31] LABS: Hematocrit (blood only) 37.5 % (37-47); Hemoglobin 12.1 g/dL (12.0-16.0); Mean Corpuscular Hgb Conc 32.3 g/dL (32-36); Mean Corpuscular Volume 86.8 fL (80-100); RDW Standard Deviation 48.3 fL (36.4-46.3); Red Blood Count 4.32 M/uL (4.2-5.4); White Blood Count 6.58 K/uL (4.8-10.8)
[2021-06-03] MEDS: NSS + 20MEQ KCL 20 MEQ/1,000 ML BAG IV SCH (05:35)
[2021-06-03] MEDS: DOXYCYCLINE HYCLATE 100 MG in DEXTROSE 5% 100 ML IV SCH (05:36)
[2021-06-03] MEDS: HEPARIN SODIUM/DEXTROSE 25,000 UNITS/500 ML BAG IV SCH (05:36)
[2021-06-03 05:50] LABS: Albumin Level 2.7 gm/dl (3.4-5.0); BUN Creatinine Ratio 12.4 (10-20); Calcium 8.5 mg/dl (8.5-10.1); Creatinine Clr Calc Pharmacy 60.1 ml/min; Est GFR (African American) 76.3 ml/min; Est GFR (Non-African American) 65.8 ml/min; Magnesium 1.9 mg/dl (1.8-2.4); Potassium 4.6 mmol/L (3.5-5.1)
[2021-06-03 05:53] LABS: Albumin Globulin Ratio 0.8 (0.9-2); Bilirubin,Total 0.5 mg/dl (0.2-1); Globulin 3.5 gm/dl (2.5-4.0); Total Protein 6.2 gm/dl (6.4-8.2)
[2021-06-03 05:58] LABS: Partial Thromboplastin Ratio 1.7; Partial Thromboplastin Time 44.7 Seconds (21.0-31.0)
[2021-06-03 06:33] LABS: Mean Platelet Volume 10.5 fL (7.4-10.4); Platelet Count 90 K/uL (130-400)
[2021-06-03 06:51] LABS: ALC (manual) 4.83 K/uL (1.2-3.4); ANC (manual) 1.51 K/uL (1.4-6.5); Eosinophils # (manual) 0.06 K/uL (0-0.5); Eosinophils % (manual) 0.9 %; Lymphocytes # (manual) 2.15 K/uL (1.2-3.4); Lymphocytes % (manual) 32.7 %; Monocytes # (manual) 0.18 K/uL (0.11-0.59); Monocytes % (manual) 2.7 %; Neutrophils # (manual) 1.51 K/uL (1.4-6.5); Plasma Cells # (manual) 0.12 K/uL (0-0); Plasma Cells % (manual) 1.8 %; Reactive Lymphocytes # (manual) 2.56 K/uL; Reactive Lymphocytes % (manual) 38.9 %
[2021-06-03] MEDS: METOPROLOL SUCC 25MG EXT REL TAB PO SCH (08:17)
[2021-06-03] MEDS ORDERED: APIXABAN 5 MG TABLET PO SCH (11:00)
--- NOTE | 2021-06-03 12:25 | Hospitalist Progress Note ---
Date of Service June 03, 2021 Assessment & Plan (1) Weakness: Dehydration Orthostatic hypotension Diarrhea Positive orthostatics while in ED. Received IV fluids Monitor BP Stool culture: No growth Stool for C. difficile canceled due to semiformed stool Acute Pulmonary Embolism: POA Elevated D dimer -CTA: Bilateral pulmonary emboli. Cardiomegaly and trace pleural effusions. Dependent consolidation likely represents atelectasis. Clinical correlation will be required. -Venous Doppler:There is no sonographic evidence of deep venous thrombosis identified in the right or left lower extremity. -ECHO: Normal LV chamber size with moderate LVH. EF 60 to 65%. No segmental left ventricular wall motion abnormalities. Grade 2 diastolic dysfunction. Annuloplasty ring noted in mitral position. Prosthetic mitral valve appears to open well. Normal left atrial size. No mitral valve stenosis or regurgitation. -IV heparin transitioned to Eliquis as per patient's preference H/O Cerebral amyloid angiopathy Suprasellar nodule -MRI Brain:No acute infarct or acute intracranial hemorrhage. A few scattered punctate foci of susceptibility artifact seen within the brain consistent with the patient's known history of cerebral amyloid angiopathy. A 5 mm suprasellar nodule abutting the superior aspect of the pituitary gland. This could be separate from the pituitary gland and therefore may represent a small meningioma, Rathke's cleft cyst, or craniopharyngioma. An exophytic pituitary microadenoma could also have a similar appearance. Follow-up neurosurgical consultation recommended. -Follows with Neurology -Neurology agrees with anticoagulation for PE Evaluated by Neurosurgery ~ 1month ago as per patient -Advised to follow follow up with Neurosurgery as outpatient Hyponatremia Hypokalemia Secondary to GI losses, dehydration Replace electrolytes as needed Anaplasmosis Denies known tick bite Lyme screen negative Blood cultures obtained Peripheral smear positive for anaplasmosis Continue doxycycline Day #3 Transaminitis Likely secondary to tickborne illness History of cholelithiasis Gall Bladder USD:Cholelithiasis. No gallbladder wall thickening. Normal liver. Avoid hepatotoxic agents Monitor LFTs Sinus tachycardia History of paroxysmal SVT H/O mitral valve repair ECHO as above Continue metoprolol with holding parameters CKD stage III Creatinine at baseline Avoid nephrotoxic agents as able Monitor renal function History of breast cancer S/p surgery Atelectasis Continue incentive spirometry DVT Px Eliquis CODE STATUS Full code Disposition Plan to discharge home Admission and Anticipated Discharge Date Admission Date: June 01, 2021 Subjective Patient is seen and examined at bedside States feeling well No new complaints Denies chest pain, dyspnea, nausea, abd pain, bleeding issues Review of Systems Review of Systems: All systems reviewed & are unremarkable except as noted in HPI & below Physical Exam Physical Exam: Physical Exam: Vitals signs as noted above General Appearance:Moderately built and nourished, no apparent distress Head: normocephalic, Atraumatic Eyes: normal inspection, EOMI Neck: supple, Trachea midline Respiratory/Chest: Normal breath sounds, CTA Cardiovascular: S1, S2, No murmur Abdomen/GI:Soft, Non tender, Bowel sounds present Extremities/Musculoskeletal:normal inspection, no edema Neurologic/Psych:AAOX3, grossly no focal neurological deficits Skin: normal color, warm Results & Data Results & Data ([facility]) Vital Signs (Past 12 Hours) Vital Signs Temp Pulse Pulse Resp BP BP Pulse Ox 06/03/21 11:23 36.6 C 78 18 100/63 95 06/03/21 07:16 36.5 C 65 18 111/75 94 06/03/21 07:01 64 06/03/21 03:20 36.6 C 73 20 106/71 92 Laboratory Results Short CBC 06/03/21 Range/Units 05:21 WBC 6.58 (4.8-10.8) K/uL Hgb 12.1 (12.0-16.0) g/dL Hct 37.5 (37-47) % Plt Count 90 L (130-400) K/uL BMP 06/03/21 05:21 Sodium 141 Potassium 4.6 Chloride 111 H Carbon Dioxide 27 BUN 11 Creatinine 0.92 Glucose 92 Calcium 8.5 Liver Function 06/03/21 Range/Units 05:21 Total Bilirubin 0.5 (0.2-1) mg/dl AST 40 H (15-37) U/L ALT 60 (12-78) U/L Alkaline Phosphatase 95 (45-117) U/L Albumin 2.7 L (3.4-5.0) gm/dl
--- NOTE | 2021-06-03 12:53 | Discharge Summary ---
Date of Service June 03, 2021 Admission HPI Per Admitting Provider Patient is a 65-year-old female with history of paroxysmal SVT, stage III kidney disease, mitral valve repair, history of infective endocarditis, breast carcinoma S/P surgery and other medical problems presents with history of ongoing generalized weakness, intermittent diarrhea, leg cramps, poor appetite, fever since 2 weeks duration. Patient was evaluated by PCP today and was sent to ED for further evaluation. Patient states having a headache 1 week ago lasting for about 5 days which currently resolved. She states having diarrhea intermittently for about 3 weeks duration but denies any history of abdominal pa in. She admits to have an episode of vomiting 4 days ago. She also states having leg cramps bilaterally since 2 days duration. She has poor appetite for about 2 weeks and also noticed fever associated with diaphoresis since 2 days duration. She reports having a syncopal episode about 2 weeks ago and she was noted to have low blood pressure in the 60s when checked at home at that time. She also states having dyspnea at rest and on exertion since last few days. She noted to have small bump on her left leg 3 weeks ago but denies any tick bite. Denies any history of chest pain, palpitations, dizziness, pedal edema, cough, change in vision, bowel/bladder incontinence, blood in stools, dysuria. Admission Exam Per Admitting Provider Physical Exam Physical Exam: Physical Exam: Vitals signs as noted above General Appearance:Moderately built and nourished, no apparent distress Head: normocephalic, Atraumatic Eyes: normal inspection, EOMI Neck: supple, Trachea midline Respiratory/Chest: Normal breath sounds, Left basal crackles Cardiovascular: S1, S2, No murmur Abdomen/GI:Soft, Non tender, Bowel sounds present Extremities/Musculoskeletal:normal inspection, no edema Neurologic/Psych:AAOX3, grossly no focal neurological deficits Skin: normal color, warm Principal Diagnosis Acute Pulmonary Embolism Anaplasmosis Dehydration Orthostatic hypotension Hyponatremia Hypokalemia Suprasellar nodule Discharge Data Allergies Allergy/AdvReac Type Severity Reaction Status Date / Time lidocaine Allergy Unknown CAN'T Verified 06/01/21 15:46 REMEMBER metronidazole Allergy Unknown CAN'T Verified 06/01/21 15:46 REMEMBER Sulfa (Sulfonamide Allergy Unknown CAN'T Verified 06/01/21 15:46 Antibiotics) REMEMBER Consultations 06/01/21 17:50 ED Decision to Admit Stat Procedures Performed -CTA: Bilateral pulmonary emboli. Cardiomegaly and trace pleural effusions. Dependent consolidation likely represents atelectasis. Clinical correlation will be required. -Venous Doppler:There is no sonographic evidence of deep venous thrombosis identified in the right or left lower extremity. -ECHO: Normal LV chamber size with moderate LVH. EF 60 to 65%. No segmental left ventricular wall motion abnormalities. Grade 2 diastolic dysfunction. Annuloplasty ring noted in mitral position. Prosthetic mitral valve appears to open well. Normal left atrial size. No mitral valve stenosis or regurgitation. -MRI Brain:No acute infarct or acute intracranial hemorrhage. A few scattered punctate foci of susceptibility artifact seen within the brain consistent with the patient's known history of cerebral amyloid angiopathy. A 5 mm suprasellar nodule abutting the superior aspect of the pituitary gland. This could be separate from the pituitary gland and therefore may represent a small meningioma, Rathke's cleft cyst, or craniopharyngioma. An exophytic pituitary microadenoma could also have a similar appearance. Follow-up neurosurgical consultation recommended. Ordered Studies 06/01/21 19:42 CT angio chest PE protocol Urgent 06/01/21 19:43 US venous doppler LE BI Routine 06/01/21 22:10 CT head/brain wo con Urgent 06/02/21 US gallbladder Urgent 06/02/21 23:16 MR brain wo con Urgent Hospital Course (1) Weakness: Dehydration Orthostatic hypotension Diarrhea Positive orthostatics while in ED. Received IV fluids Monitor BP Stool culture: No growth Stool for C. difficile canceled due to semiformed stool Acute Pulmonary Embolism: POA Elevated D dimer -CTA: Bilateral pulmonary emboli. Cardiomegaly and trace pleural effusions. Dependent consolidation likely represents atelectasis. Clinical correlation will be required. -Venous Doppler:There is no sonographic evidence of deep venous thrombosis identified in the right or left lower extremity. -ECHO: Normal LV chamber size with moderate LVH. EF 60 to 65%. No segmental left ventricular wall motion abnormalities. Grade 2 diastolic dysfunction. Annuloplasty ring noted in mitral position. Prosthetic mitral valve appears to open well. Normal left atrial size. No mitral valve stenosis or regurgitation. -IV heparin transitioned to Eliquis as per patient's preference H/O Cerebral amyloid angiopathy Suprasellar nodule -MRI Brain:No acute infarct or acute intracranial hemorrhage. A few scattered punctate foci of susceptibility artifact seen within the brain consistent with the patient's known history of cerebral amyloid angiopathy. A 5 mm suprasellar nodule abutting the superior aspect of the pituitary gland. This could be separate from the pituitary gland and therefore may represent a small meningioma, Rathke's cleft cyst, or craniopharyngioma. An exophytic pituitary microadenoma could also have a similar appearance. Follow-up neurosurgical consultation recommended. -Follows with Neurology -Neurology agrees with anticoagulation for PE Evaluated by Neurosurgery ~ 1month ago as per patient -Advised to follow follow up with Neurosurgery as outpatient Hyponatremia Hypokalemia Secondary to GI losses, dehydration Replace electrolytes as needed Anaplasmosis Denies known tick bite Lyme screen negative Blood cultures obtained Peripheral smear positive for anaplasmosis Continue doxycycline Day #3 Transaminitis Likely secondary to tickborne illness History of cholelithiasis Gall Bladder USD:Cholelithiasis. No gallbladder wall thickening. Normal liver. Avoid hepatotoxic agents Monitor LFTs Sinus tachycardia History of paroxysmal SVT H/O mitral valve repair ECHO as above Continue metoprolol with holding parameters CKD stage III Creatinine at baseline Avoid nephrotoxic agents as able Monitor renal function History of breast cancer S/p surgery Atelectasis Continue incentive spirometry DVT Px Eliquis CODE STATUS Full code Disposition Plan to discharge home Total Time Total Time Spent Total Time Spent (In Minutes): 43 minutes Total Time Includes: Examination of the Patient, Discharge Planning, Medication Reconciliation, Communication With Other Providers and Other Discharge Plan Discharge Items Patient Disposition: Home - Self-Care Reason For Visit: TRANSAMINITIS Discharge Diagnosis: Acute Pulmonary Embolism Anaplasmosis Dehydration Orthostatic hypotension Hyponatremia Hypokalemia Suprasellar nodule Activity: Per Instructions section Exercise/Sports: Wait until after follow-up appointment Non-emergency contact: Primary Care Provider and Neurologist Call non-emergency contact if: you have any medication questions, your symptoms worsen, your pain is concerning for you and you have a fever Follow-up/Referrals: Shari Sparks DO [Primary Care Provider] - Diet: Heart Healthy Addtl Attending Provider Instructions: Follow-up with your primary care physician in 1 week Follow-up with your neurologist Dr. Ren and your neurosurgeon as advised Complete the antibiotic course (Doxycycline as prescribed) Apixaban (Eliquis) Course: Start taking apixaban 10 mg twice a day for 1 week, then take 5 mg twice a day. Duration of apixaban therapy to be determined by your primary care physician. Seek immediate medical attention if your symptoms reoccur or worsen Please take all medications as instructed on discharge list below. Please call if you have any questions or problems. You can reach a [facility] hospitalist on duty at [facility] 24 hours a day by calling [phone] Pending Studies at Discharge: No Stand-Alone Forms: My [facility], Smoking Cessation Medications and DC Order Prescriptions: New Eliquis 5 mg (74 tabs) tablets,dose pack 5 mg PO UD Qty: 74 RF: 1 doxycycline hyclate 100 mg tablet 100 mg PO BID Qty: 16 RF: 0 Continued metoprolol succinate 25 mg tablet extended release 24 hr 12.5 mg PO DAILY RF: 0 acetaminophen 500 mg Capsule 1,000 mg PO Q6H PRN (Reason: Pain) RF: 0 cholecalciferol (vitamin D3) [Vitamin D3] 25 mcg (1,000 unit) Tablet,Chewable 0 mcg PO DAILY RF: 0 Discharge Orders: Discharge Order (Routine); Ordered 06/03/21 Ordered By: Tanner Marin Admission Data Admit Date/Time: 06/01/21 23:24 Attending Provider: Tanner Marin Admit Provider: Tanner Marin Primary Care Provider: Shari Sparks Other Providers: Kadie Gamboa Other Interventions: Discharge Summary Assessment (RN) Last Done: 06/03/21 14:06
[2021-06-10] MEDS ORDERED: APIXABAN 5 MG TABLET PO SCH (09:00)
== END 2021-06-03 15:06 | disposition home or self-care (01) | DRG 867 ==
LOC: ED 14:47 → 2N 14:47